=== PATIENT | male | born 2000 | race Caucasian/White ===

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

== ENCOUNTER 2019-01-11 00:23 | Emergency (ER) | payer OTHER ==
[~2019-01-11] VITALS: Ht 203.2 cm; Wt 90.7 kg
[2019-01-11 00:25] VITALS: BP 138/82
--- NOTE | 2019-01-11 00:35 | ED.ADGEN ---
Past History Past Surgical History: Other Past Surgical History Shoulders and Knee surgeries Adult General Chief Complaint Chief Complaint ".. I was working at my desk.. and I guess my foot fell asleep.. I got up and started to walk.. but I inverted my Lt ankle and foot.. something popped.. and it really hurts .. now.. " HPI HPI Patient is a 18 year old male [facility]. who presents with above hx and complaints Lt ankle and foot injury. No other injury reported. Upper leg nontender. . Patient localizes pain in left lateral malleolus and mid foot. Distal neurovascular appears to be intact. Capillary refill equal to right foot. Patient normally healthy. No recent travel. No specific ill contacts. Patient has taken Tylenol already. Pt. has been unable to bear wt on Lt foot and ankle since the injury because of pain. Review of Systems Review of Systems Constitutional: Denies fever or chills [] Eyes: Denies change in visual acuity, redness, or eye pain [] HENT: Denies nasal congestion or sore throat [] Respiratory: Denies cough or shortness of breath [] Cardiovascular: No additional information not addressed in HPI [] GI: Denies abdominal pain, nausea, vomiting, bloody stools or diarrhea [] : Denies dysuria or hematuria [] Musculoskeletal: Denies back pain or joint pain []complains of left ankle and f oot injury Integument: Denies rash or skin lesions [] Neurologic: Denies headache, focal weakness or sensory changes [] Endocrine: Denies polyuria or polydipsia [] All other systems were reviewed and found to be within normal limits, except as documented in this note. Family History Family History Noncontributory Current Medications Current Medications See nursing for home meds Allergies Allergies Allergies Coded Allergies Type Severity Reaction Last Updated Verified ibuprofen Allergy Severe Anaphylaxis 01/11/19 Yes Physical Exam Physical Exam Constitutional: Well developed, well nourished, in moderately acute distress, non-toxic appearance. [] HENT: Normocephalic, atraumatic, bilateral external ears normal, oropharynx moist, no oral exudates, nose normal. [] Eyes: PERRLA, EOMI, conjunctiva normal, no discharge. [] Neck: Normal range of motion, no tenderness, supple, no stridor. [] Cardiovascular:Heart rate regular rhythm, no murmur [] Lungs & Thorax: Bilateral breath sounds clear to auscultation [] Abdomen: Bowel sounds normal, soft, no tenderness, no masses, no pulsatile masses. [] Skin: Warm, dry, no erythema, no rash. [] Back: No tenderness, no CVA tenderness. [] Extremities: No tenderness, no cyanosis, no clubbing, ROM intact, no edema. [] Except Lt ankle and foot tenderness as per HPI. ( wears size 15 shoe) Scars shoulder and knees Neurologic: Alert and oriented X 3, normal motor function, normal sensory function, no focal deficits noted. [] Psychologic: Affect normal, judgement normal, mood normal. [] Current Patient Data Vital Signs Vital Signs Date Time Temp Pulse Resp B/P (MAP) Pulse Ox O2 Delivery O2 Flow Rate FiO2 01/11/19 00:25 98.6 63 20 138/82 (100) 100 Room Air EKG EKG [] Radiology/Procedures Radiology/Procedures I interpretation of left ankle and foot show[] no obvious displaced fracture or dislocation does have edema. Course & Med Decision Making Course & Med Decision Making Pertinent Labs and Imaging studies reviewed. (See chart for details) Ice, elevation, rest, splint, crutches. Take Tylenol for pain. Follow-up primary care. Follow-up work comp. Return if any concerns. Distal neurovascular intact after application of splint. [] Final Impression Final Impression 1. Left ankle and foot sprain strain[] Dragon Disclaimer Dragon Disclaimer This electronic medical record was generated, in whole or in part, using a voice recognition dictation system. Discharge Summary Visit Information Final Diagnosis Problems Medical Problems: (1) Ankle sprain Status: Acute (2) Foot sprain Status: Acute Brief Hospital Course Allergies Allergies Coded Allergies Type Severity Reaction Last Updated Verified ibuprofen Allergy Severe Anaphylaxis 01/11/19 Yes Vital Signs Vital Signs Date Time Temp Pulse Resp B/P (MAP) Pulse Ox O2 Delivery O2 Flow Rate FiO2 01/11/19 00:25 98.6 63 20 138/82 (100) 100 Room Air Brief Hospital Course Mr. Brownlee is a 18 old male who presented with Lt ankle and foot injury. Discharge Information Condition at Discharge: Stable Disposition/Orders: D/C to Home Dischare Medications Active Scripts Active Percocet 5-325 Mg Tablet (Oxycodone Hcl/Acetaminophen) 1 Each Tablet 1 Tab PO PRN Q6HRS PRN Reported Xanax (Alprazolam) 0.25 Mg Tablet 0.25 Mg PO PRN Q6HRS PRN Prozac (Fluoxetine Hcl) 20 Mg Capsule 30 Mg PO DAILY Dragon Disclaimer This chart was dictated in whole or in part using Voice Recognition software in a busy, high-work load, and often noisy Emergency Department environment. It may contain unintended and wholly unrecognized errors or omissions. ELSA MANN MD Jan 11, 2019 00:35
[2019-01-11] MEDS ORDERED: FLUO20CA16 PO (00:50)
[2019-01-11] MEDS ORDERED: ALPR0.25 PO (00:50)
[2019-01-11] MEDS ORDERED: OXYC1TAB15 PO (02:04)
--- NOTE | 2019-01-11 07:52 | RAD ---
Left ankle radiographs History: Pain Comparison: None. Findings: 4 views left ankle are submitted. No acute fracture or dislocation is identified. Impression: 1. No acute osseous abnormality is identified by radiographs. Electronically signed by: Joel Gillespie MD (01/11/2019 7:50 AM) [id number]
--- NOTE | 2019-01-11 07:58 | RAD ---
FOOT LEFT 3V History: Pain Comparison: None. Findings: 3 views of the left foot are submitted. No acute fracture or dislocation is identified. Impression: 1. No acute osseous abnormality is identified by radiographs. Electronically signed by: Joel Gillespie MD (01/11/2019 7:55 AM) [id number]
== END 2019-01-11 02:25 | disposition home or self-care (01) ==
LOC: ER 00:23
DX: S93.402A Sprain of unspecified ligament of left ankle, initial encounter (principal); S93.602A Unspecified sprain of left foot, initial encounter; Z88.6 Allergy status to analgesic agent; X50.9XXA Other and unspecified overexertion or strenuous movements or postures, initial encounter; Y93.01 Activity, walking, marching and hiking; Y92.89 Other specified places as the place of occurrence of the external cause; Y99.0 Civilian activity done for income or pay
CPT/HCPCS: 29515; 73610; 73630; 99284

== ENCOUNTER → 2019-12-15 | Outpatient (CLI) | payer OTHER ==
[~2019-12-15] MED LIST: ALPR0.25 PO; FLUO20CA16 PO; OXYC1TAB15 PO
== END | disposition home or self-care (01) ==
LOC: LAB 16:09
PROVIDERS: ATTEND Internal Medicine Cardiovascular Disease
DX: R68.83 Chills (without fever) (principal); Z20.828 Contact with and (suspected) exposure to other viral communicable diseases
CPT/HCPCS: C9803; U0003

== ENCOUNTER → 2020-02-17 | Outpatient (CLI) | payer OTHER | END | disposition home or self-care (01) | LOC: LAB 01:33 | PROVIDERS: ATTEND Internal Medicine Cardiovascular Disease | DX: Z20.828 Contact with and (suspected) exposure to other viral communicable diseases (principal) | CPT/HCPCS: C9803; U0003; 36415 ==